=== PATIENT | male | born 1985 | race Two or more races ===

== ENCOUNTER 2016-08-23 18:59 | Emergency (ER) | payer SELFPAY ==
[2016-08-23 21:59] LABS: Urine Bacteria Absent (Absent); Urine Bilirubin Negative (Negative); Urine Glucose Negative (Negative); Urine Nitrite Negative (Negative)
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
--- NOTE | 2016-08-23 22:44 | RAD ---
Indication: RIGHT testicular and back pain for one week more intense over the last 2 days. Palpable RIGHT testicular mass on physical exam. Comparison: None. Technique: Scrotal ultrasound. Report: 5.0 x 3.1 x 3.9 cm RIGHT testicle is heterogeneous in echotexture with multiple heterogeneous echogenicity mass lesions with intrinsic vascularity. Dominant 2.3 x 1.5 x 2.0 and 2.1 x 2.3 x 2.4 cm lesions. Associated testicular microlithiasis. 1.6 x 1.3 cm RIGHT epididymal head with normal vascularity is remarkable for a 1.3 x 0.7 x 1.6 cm epididymal head cyst or spermatocele. Negative for RIGHT hydrocele or varicocele. Normal echotexture 4.8 x 2.9 x 3.4 cm LEFT testicle demonstrates normal range vascularity. Negative for focal LEFT testicular lesions or microlithiasis. 1.3 x 1.4 cm LEFT epididymis head with normal range vascularity is unremarkable. Negative for LEFT hydrocele or varicocele. IMPRESSION: 1. Enlarged heterogeneous echogenicity RIGHT testicle with innumerable focal intratesticular lesions and microlithiasis highly suspicious for malignancy most seminoma or other germ cell tumor. 2. No evidence for testicular torsion or epididymoorchitis. Results discussed with REX Ji 08/23/2016 10:39 PM EDT
[2016-08-23 23:14] VITALS: BP 148/91
== END 2016-08-23 23:12 | disposition home or self-care (01) ==
LOC: ED 18:59
DX: N50.89 Other specified disorders of the male genital organs (principal)
CPT/HCPCS: 76870; 81003; 81015; 99282